=== PATIENT | female | born 1965 | race Caucasian/White ===

== ENCOUNTER 2020-02-18 13:14 | Emergency (ER) | payer SELFPAY ==
[~2020-02-18] VITALS: Ht 160 cm; Wt 68.0 kg
--- NOTE | 2020-02-18 15:21 | Diagnostic Imaging Report ---
TECHNIQUE: 1. Frontal view of the chest in expiration. 2. Frontal view of the chest in inspiration INDICATION: ^shortness of breath ^20200218 ^1436 COMPARISON: None DISCUSSION: Limited evaluation due to portable technique. Lines and hardware: None Heart and mediastinum: Cardiomediastinal silhouette is enlarged. Central vascular congestion is noted. Trachea projects midline. Lungs and pleura: Prominent interstitial markings are noted. Blunting of the right costophrenic angle is noted. Patchy right basilar opacities are noted. Negative for large left effusion or focal consolidation. Negative for large pneumothorax. Soft tissues and bones: No acute abnormality. IMPRESSION: 1. Right basilar patchy airspace opacities with blunting of the right costophrenic angle is concerning for pleural effusion/overlying atelectasis. Superimposed consolidation/infection at the right lung base is difficult to exclude. 2. Cardiomegaly, central vascular congestion and interstitial opacities are concerning for fluid overload/early pulmonary edema. Signed by: Maynor Acosta MD on 02/18/2020 3:18 PM
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
--- OUTSIDE RECORDS SUMMARY | 2020-02-20 16:14 | XMS REPORT | Clinical Summary ---
Author Author [facility] Organization [facility] Address Unknown Phone Unavailable Care Team Providers Care Attendant [facility] Name Role Phone PCP Unavailable Allergies No Known Allergies Medications End Date Status Medication Sig Dispensed Refills Start Date Active ibuprofen (MOTRIN) 800 mg Take 1 tablet 30 tablet 0 tabletIndications: by mouth 9 Nonintractable headache, every 8 hours unspecified chronicity as needed for pattern, unspecified Pain Take headache type with food. Active baclofen (LIORESAL) 10 mg Take 1 tablet 60 tablet 1 tabletIndications: by mouth 2 9 Chronic midline low back times daily pain without sciatica as needed for Pain (CLBP). Active mupirocin (BACTROBAN) 2 % Apply to 22 g 3 ointmentIndications: Skin affected area 9 lesion of face 3 times daily. Active naproxen (NAPROSYN) 500 Take 1 tablet 60 tablet 1 mg tabletIndications: by mouth 2 9 Chronic bilateral low times daily back pain without (with meals). sciatica Additional Information Patient not taking. Reported on 05/24/2019 9:56 AM Active polyethylene glycol Add lukewarm 4000 mL 0 04/29 (GOLYTELY) 236-22.74-6.74 drinking 9 -5.86 gram oral water to the solutionIndications: fill chip (4 History of colon polyps liters) and shake. Drink as directed by your doctor.. Active imiquimod (ALDARA) 5 % Apply the 12 Each 3 topical cream cream to the 9 packetIndications: affected area Superficial basal cell on the left carcinoma thigh and on the upper back five days a week for at least 6 weeks. Cont use after that 5 days a week unless there is significant pain. Active hydrOXYzine (ATARAX) 25 Take 1 tablet 30 tablet 2 mg tabletIndications: by mouth 9 Anxiety disorder, daily as unspecified type needed for Anxiety. Additional Information Patient not taking. Reported on 05/24/2019 9:56 AM Active atomoxetine (STRATTERA) Take 1 30 capsule 1 40 mg capsuleIndications: capsule by 0 Attention deficit mouth daily. Active acetaminophen-codeine Take 1 tablet 30 tablet 0 (TYLENOL/CODEINE #3) by mouth 0 300-30 mg per every 4 hours tabletIndications: Basal as needed for cell carcinoma (BCC) of Pain. skin of other part of face, Open wound of face, initial encounter 04/02/2019 Discontinued (Reorder) traMADol (ULTRAM) 50 mg Take 1 tablet 30 tablet 0 tabletIndications: Skin by mouth 9 lesion of face every 6 hours as needed for Pain. 04/29/2019 Discontinued (Reorder) polyethylene glycol Add lukewarm 4000 mL 0 03/26 (GOLYTELY) 236-22.74-6.74 drinking 9 -5.86 gram oral water to the solutionIndications: fill chip (4 History of colon polyps liters) and shake. Drink as directed by your doctor.. 04/09/2019 traMADol (ULTRAM) 50 mg Take 1 tablet 30 tablet 0 tabletIndications: Skin by mouth 9 lesion of face every 6 hours as needed for up to 7 days for Pain. 06/04/2019 Discontinued (Reorder) acetaminophen-codeine Take 1 tablet 30 tablet 0 (TYLENOL/CODEINE #3) by mouth 9 300-30 mg per every 6 hours tabletIndications: Skin as needed for lesion of face Pain. 04/12/2019 Discontinued NORCO 5-325 mg Take 1 tablet 60 tablet 0 tabletIndications: Skin by mouth 9 cancer every 6 hours as needed for Pain. 04/12/2019 Discontinued NORCO 5-325 mg Take 1 tablet 60 tablet 0 tabletIndications: Skin by mouth 9 cancer every 6 hours as needed for Pain. 08/03/2019 Discontinued (Alternate ther apy) HYDROcodone-acetaminophen Take 1 tablet 60 tablet 0 (NORCO) 5-325 mg by mouth 9 tabletIndications: Skin every 6 hours cancer as needed for Pain. 05/09/2019 hydrOXYzine (ATARAX) 25 Take 1 tablet 30 tablet 0 mg tabletIndications: by mouth 3 9 Anxiety state times daily as needed for up to 10 days for Itching. 05/07/2019 Discontinued (Alternate ther apy) imiquimod (ALDARA) 5 % Apply 1 12 Each 6 topical cream Packet to 9 packetIndications: affected area Superficial basal cell 3 times carcinoma weekly Use five days a week at bedtime to the affected areas on the right thigh and upper back. Start using after vicente.. 05/14/2019 Discontinued (Other) methylphenidate HCl Take 1 tablet 30 tablet 0 04/25 (CONCERTA) 27 mg TR24 by mouth 9 extended release every tabletIndications: morning. Attention deficit 06/24/2019 Discontinued (Alternate ther apy) buPROPion (WELLBUTRIN XL) Take 1 tablet 30 tablet 2 150 mg extended release by mouth 9 tabletIndications: every Attention deficit morning. 08/03/2019 Discontinued (Alternate ther apy) traMADol (ULTRAM) 50 mg Take 1 tablet 30 tablet 0 tabletIndications: Basal by mouth 0 cell carcinoma, Open every 6 hours wound of face, initial as needed for encounter Pain. 06/14/2019 docusate sodium (COLACE) Take 1 10 capsule 0 0 100 mg capsule by 0 capsuleIndications: Basal mouth 2 times cell carcinoma, Open daily for 10 wound of face, initial days. encounter 06/14/2019 amoxicillin-clavulanate Take 1 tablet 20 tablet 0 (AUGMENTIN) 875-125 mg by mouth 2 0 per tabletIndications: times daily Basal cell carcinoma, for 10 days. Open wound of face, initial encounter 06/28/2019 Discontinued (Reorder) acetaminophen-codeine Take 1 tablet 20 tablet 0 (TYLENOL/CODEINE #3) by mouth 0 300-30 mg per every 6 hours tabletIndications: Basal as needed for cell carcinoma, Open Pain. wound of face, initial encounter 08/03/2019 Discontinued (Alternate ther apy) acetaminophen-codeine Take 1 tablet 15 tablet 0 (TYLENOL/CODEINE #3) by mouth 0 300-30 mg per every 6 hours tabletIndications: Basal as needed for cell carcinoma, Open Pain. wound of face, initial encounter Active Problems Problem Noted Date Open wound of face 06/01[place]2019 [place] [facility] [place] Overview: Head and Neck Tumor Board Date 05/12/20 Date discussed: 05/12/2019 Referred by :Dr. Ayala Discussants: (Surgery) Drs. Bains & Bharat lewis, (OFMS) Dr. Cade (Radiation) Dr. Merrill (Radiology) , (Pa thology) Dr. Mckeon, (H&N METER SETTER) Mrs. Jeffers, (Nutrition) Meghan Mccarthy, (Sp ee Pathologist) Michelle Peña and Sonya Hardin (Case Management) Tony Lee (Med Onc & Moderator) Dr. Locke and Dr. Tamez Diagnosis: 5.5cm Nodular basal cell car cinoma of scalp Stage (TNM): Was [place] changed [place] [facility] [place]? No Prognostic marker discussed? Yes Clinical trial options? No Question: Treatment Planning Imaging: CT Head, CT face/neck 04/19/20 Recs:Surgery scheduled 06/01/2018 [facility] [place]. Final decisi on is left to patient and treating physician. Cannabis use with anxiety disorder 05/17/2019 Attention deficit 05/12/2019 Anxiety disorder 05/12/2019 Basal cell carcinoma 04/26/2019 Overview: Added automatically from request for jose euceda [id number] Cigarette smoker 03/26/2019 Chronic midline low back pain without sciatica 03/26 Degenerative disc disease at L5-S1 level 03/26/2019 Skin lesion of face Encounters Care Team Description Date Type Specialty Linda Ivory NP 09/22/2019 Orders Only Family Practice Maninder Rodriguez MD Medications 09/20/2019 Refill Ent-Otolaryngology Milton Mednoza MD Medications 09/07/2019 Refill Ent-Otolaryngology Milton Mendoza MD Medications 09/03/2019 Refill Ent-Otolaryngology Milton Mendoza MD Medications 08/26/2019 Refill Ent-Otolaryngology Milton Mendoza MD Basal cell carcinoma (BCC) of skin of ot her part of face (Primary Dx); Cigarette smoker; Attention deficit; Anxiety disorder, unspecified type; Open wound of face, initial encounter 08/03/2019 Office Visit Ent-Otolaryngology Amanda Durant [facility] [place] 08/03/2019 Clinical Case Case Management Mgt Maninder Rodriguez MD Basal cell carcinoma (Primary Dx); Open wound of face, initial encounter 06/28/2019 Office Visit Ent-Otolaryngology Jeremiah Lee, RN 06/28/2019 Clinical Case t Haley Tierney MD Attention deficit (Primary Dx) 06/24/2019 Office Visit Psychiatry Howie Talamantes MD Callejas, Sandra A, WAREHOUSE STOCK CLERK 06/01/2019 Anesthesia Event Maninder Rodriguez MD WIDE LOCAL EXCISION OF RIGHT FOREHEAD SC ALP MASS, INTEGRA PLACEMENT, WOUND VAC PLACEMENT. 06/01/2019 Surgery Maninder Rodriguez MD Open wound of face, initial encounter (P rimary Dx); Basal cell carcinoma 06/01/2019 Hospital - Encounter 06/04/2019 Lowell Hamlin ResidentPA Medications 05/31/2019 Orders Only Ent-Otolaryngology Chelsea Leon, WAREHOUSE STOCK CLERK 05/24/2019 Hospital Anesthesiology Encounter Fermín Salmeron MD Attention deficit (Primary Dx); Anxiety disorder, unspecified type 05/17/2019 Office Visit Psychiatry Fermín Salmeron MD 05/14/2019 Orders Only Psychiatry Jeremiah Lee RN 05/13/2019 Clinical Case Mgt Fermín Salmeron MD Anxiety disorder, unspecified type (Prim nae Dx); Attention deficit 05/12/2019 Office Visit Psychiatry Clement Mena MD Basal cell carcinoma of scalp (Primary D x); Superficial basal cell carcinoma; Basal cell carcinoma (BCC) of skin of other part of face; Basal cell carcinoma of skin of left lower limb, including hip; Basal cell carcinoma, trunk 05/07/2019 Office Visit Dermatology Candelaria Cardoso MD Patton, Lisa M, NP Breast cancer screening (Primary Dx); History of colon polyps; Needs flu shot; Anxiety state 04/29/2019 Office Visit Family Practice Maninder Rodriguez MD Basal cell carcinoma (BCC) of forehead ( Primary Dx) 04/26/2019 Office Visit Ent-Otolaryngology Maninder Rodriguez MD Skin cancer 04/26/2019 Hospital Radiology Encounter Maninder Rodriguez MD 04/26/2019 Orders Only Ent-Otolaryngology Lowell Hamlin ResidentMD 04/19/2019 Orders Only Ent-Otolaryngology Jamie Finn MD Skin cancer; Skin lesion of face 04/16/2019 Hospital Radiology Encounter Maninder Rodriguez MD Skin cancer (Primary Dx) 04/12/2019 Office Visit Ent-Otolaryngology Kalin Gutierrez MD Chronic bilateral low back pain without sciatica (Primary Dx) 04/09/2019 Office Visit Family Practice Skin lesion of face 04/07/2019 Hospital Lab Encounter Jamie Finn MD Skin lesion of face (Primary Dx) 04/07/2019 Office Visit Ent-Otolaryngology History of colon polyps 04/02/2019 Hospital Lab Encounter Idalmis Early MD Slater, Nathaniel A, Fellow() Neoplasm of uncertain behavior of skin ( Primary Dx); Skin lesion of face 04/02/2019 Office Visit Dermatology Linda Ivory NP 03/26/2019 Ancillary Radiology Procedure Linda Ivory NP Skin lesion (Primary Dx); Chronic midline low back pain without sciatica; Health care maintenance; Screening for colorectal cancer; History of colon polyps; Cigarette smoker 03/26/2019 Office Visit Family Practice Linda Ivory NP 03/26/2019 Orders Only Family Practice after 02/17/2019 Immunizations Name Administration Dates Next Due Influenza, Injectable, 04/29/2019 (Deferred: Patie nt Refused) Quadrivalent Influenza, Injectable, 06/04/2019 (), 06/03/2019 ( ) Quadrivalent, Preservative Free Family History Medical History Relation Name Comments Heart Father Cancer Mother Cancer Sister Cancer Sister Relation Name Status Comments Father Alive Myocardial infarct at age 57 Mother Alive Breast cancer in 40 s Sister breast cancer in 30s Sister Unknown cancer of childhood , patient states pancreatic Social History Date Tobacco Use Types Packs/Day Years Used Current Every Day Smoker Cigarettes 1 34 Smokeless Tobacco: Never Used Tobacco Cessation: Counseling Given: No Comments: 03-26-19 report she smoke 3/4 pkg/day, declined info today Drinks/Week oz/Week Comments Alcohol Use 2 Cans of beer 2.0 Not Currently Alcohol Habits Answer Date Recorded How often do you have a drink containing alcohol? 2-4 time s a month 04/09/2019 How many drinks containing alcohol do you have on 1 or 2 04/09/2019 a typical day when you are drinking? How often do you have six or more drinks on one Not asked occasion? Social Isolation Answer Date Recorded In a typical week, how many times do you talk on Three sathish es a week 04/29/2019 the phone with family, friends, or neig hbors? How often do you get together with friends or Three times a week 04/29/2019 relatives? How often do you attend yazdanism or rastafarian 1 to 4 times p year 04/29/2019 services? Do you belong to any clubs or organizations such Not asked as yazdanism groups, unions, fraternal or athletic groups, or school groups? How often do you attend meetings of the clubs or Never 04/29/2019 organizations you belong to? Are you now , , , , Divorce d 04/29/2019 never or living with a partner? Physical Activity Answer Date Recorded On average, how many days per week do you engage 0 days 04/29/2019 in moderate to strenuous exercise (like walking fast, running, jogging, dancing, swimmi ng, biking, or other activities that cause a light or heavy sweat)? On average, how many minutes do you engage in 0 min 04/29/2019 exercise at this level? Stress Answer Date Recorded Do you feel stress - tense, restless, nervous, or To some extent 04/29/2019 anxious, or unable to sleep at night be cause your mind is troubled all the time - these d ays? Financial Resource Strain Answer Date Recorde d How hard is it for you to pay for the very basics Not hard at all 04/29/2019 like food, housing, medical care, and h eating? Intimate Partner Violence Answer Date Recorde d Within the last year, have you been afraid of your No 04/29/2019 partner or ex-partner? Within the last year, have you been humiliated or No 04/29/2019 emotionally abused in other ways by you r partner or ex-partner? Within the last year, have you been kicked, hit, No 04/29/2019 slapped, or otherwise physically hurt b y your partner or ex-partner? Within the last year, have you been raped or No 04/29/2019 forced to have any kind of sexual activ ity by your partner or ex-partner? Food Insecurity Answer Date Recorded Within the past 12 months, you worried that your Never idalia e 04/02/2019 food would run out before you got money to buy more. Within the past 12 months, the food you bought Never true 04/02/2019 just didn't last and you didn't have mo leah to get more. Transportation Needs Answer Date Recorded In the past 12 months, has lack of transportation No 04/29/2019 kept you from medical appointments or f rom getting medications? In the past 12 months, has lack of transportation No 04/29/2019 kept you from meetings, work, or gettin g things needed for daily living? Sex Assigned at Date Recorded Not on file Industry Job Start Date Occupation Not on file Not on file Not on file Travel End Travel History Travel Start No recent travel history available. Last Filed Vital Signs Reading Time Taken Comments Vital Sign 116/77 08/03/2019 2:09 PM CDT Blood Pressure 97 08/03/2019 2:09 PM CDT Pulse 36.7 C (98.1 F) 08/03/2019 2:09 PM CDT Temperature 18 08/03/2019 2:09 PM CDT Respiratory Rate 95% 06/01/2019 4:30 PM FLORAL SPECIALIST Oxygen Saturation - - Inhaled Oxygen Concentration 60.8 kg (134 lb) 08/03/2019 2:09 PM CDT Weight 160 cm (5' 3") 08/03/2019 2:09 PM CDT Height 23.74 08/03/2019 2:09 PM CDT Body Mass Index Plan of Treatment Health Maintenance Due Date Last Done Comments Cervical Cancer Scrn (3 1985 Yrs) Breast Cancer Scrn 2004 (Yearly) IMM Influenza Seasonal 02/24/2020Feb to July (>/= 19 yrs) Colorectal Cancer Scrn 04/03/2020 04/03/2019 Annual (FIT/FOBT) Age 50 to 75 Implants Device Identifier Shelf Expiration Date Model / Serial / L ot Implanted Type Area Manufactur er 01/23/2021 [id number] / / [id number] Integra Bilayer Matrix Wound Right: Forehead Integra Dressing [id number] Implanted: Qty: 1 on 06/01/2019 by Maninder Johns MD at [facility] Procedures Comments Procedure Name Priority Date/Time Associated Diag nosis SEQUENTIAL COMPRESSION Routine 06/02/2019 PUMP 3:18 AM FLORAL SPECIALIST WOUND VAC SYSTEM Routine 06/01/2019 9:34 AM FLORAL SPECIALIST TISSUE EXAM Routine 06/01/2019 Basal cell carc inoma 9:17 AM FLORAL SPECIALIST EXCISION CYST 06/01/2019 Basal cell carcinom a 8:10 AM FLORAL SPECIALIST BMP POC Routine 05/24/2019 10:04 AM FLORAL SPECIALIST ECHG EKG PROC 12 LEAD STAT 05/24/2019 EKG; TRACING ONLY 9:55 AM FLORAL SPECIALIST URINE DRUG SCREEN STAT 05/12/2019 Anxiety diso rder, 9:43 AM FLORAL SPECIALIST unspecified type Attention deficit CT HEAD W CONTRAST Routine 04/26/2019 Skin cancer 8:[address] MAXILLOFACIAL W Routine 04/16/2019 Skin lesion of face CONTRAST 9:[address] SOFT TISSUE NECK W Routine 04/16/2019 Skin can cer CONTRAST 9:01 AM FLORAL SPECIALIST UREA NITROGEN/CREATININE Routine 04/07/2019 Skin lesion of face 2:44 PM FLORAL SPECIALIST FECAL OCCULT BLOOD Routine 04/03/2019 History of colon polyps 11:00 AM FLORAL SPECIALIST TISSUE EXAM Routine 04/02/2019 Neoplasm of unc ertain 11:50 AM FLORAL SPECIALIST behavior of skin XRAY SPINE LUMBOSACRAL Routine 03/26/2019 Chronic midline low back AP-LAT 11:04 AM CDT pain without sciati ca BMP POC Routine 03/26/2019 10:43 AM CDT THYROID STIMULATING Routine 03/26/2019 Health car e maintenance HORMONE (TSH) 10:28 AM CDT L[facility] HIV AG/AB COMBO ROUTINE Routine 03/26/2019 Health care maintenance SCREENING 10:28 AM CDT HEPATITIS PANEL Routine 03/26/2019 [facility] care ma intenance 10:28 AM CDT HEMOGLOBIN A1C Rout[facility]2019 [facility] AM CDT ALANINE Routine 03/26/2019 [facility] AMIN[facility]/ASPARTATE 10:28 AM CDT AMINOTRANSFERASE (ALT/AST) CBC STAT 03/26/2019 Skin lesion 10:27 AM CDT CBC/DIFF STAT 03/26/2019 Skin lesion 10:27 AM CDT after 02/17/2019 Results * Pathology - Tissue Exam (06/01/2019 9:17 AM FLORAL SPECIALIST) Only the most recent of 2 results within the time period is included. Case Report Surgical Pathology [facility] Case: [id number] Authorizing Provider: Maninder Rodriguez MD Collected: 06/01/2019 09:17 AM Ordering Location: [facility] OR Received: 06/01/2019 09:45 AM Pathologist: Isabella Love MD Specimen: Scalp, Wide Local excision Right Scalp Forehead, Long Stitch 6 oclock inferior, Short Stitch 9 oclock Temporal Addendum Stains for D2-40 was performed [facility] Addendum on block A6 and there is no electronically definite support for lymphatic signed by invasion. Isabella Love MD on 06/11/2019 at 9:45 AM FINAL DIAGNOSIS RIGHT SCALP FOREHEAD LESION, [facility] Electronically LONG STITCH 6 O'CLOCK, signed by Love, INTERIOR, SHORT STITCH 9 Isabella Treviño MD on O'CLOCK, EXCISION: 06/08/2019 at 12:27 - NODULAR BASAL CELL PM CARCINOMA WITH ULCERATION - FOCAL DEEP MARGIN POSITIVE FOR CARCINOMA - SEE COMMENT "I have personally reviewed the resident's preliminary interpretation and all specimen preparations and have personally issued this report." Comment Focal deep margin (block A7) [facility] is positive for carcinoma. All other margins are negative. Stains for D2-40 and CD31 are pending and results will be issued in an addendum. Case was shown at [facility] QA conference and diagnosis of nodular basal cell carcinoma was agreed upon. Gross The specimen is received fresh [facility] Description and subsequently put in formalin, labeled with patient's name, medical record number and "WIDE LOCAL EXCISION, RIGHT SCALP FOREHEAD, LONG STITCH 6 O'CLOCK, INFERIOR, SHORT STITCH 9 O'CLOCK". It consists of a mann-white oval skin excision fragment measuring 7.2 x 5.6 x 0.7 cm. The skin excision fragment is oriented by a long stitch marking 6 o'clock inferior and short stitch marking 9 o'clock temporal. The specimen is inked as follows: Blue=12 o'clock to 3 o'clock Red=3 o'clock to 6 o'clock Green=6 o'clock to 9 o'clock Bonner=9 o'clock to 12 o'clock Black=deep margin There is an ulcerated lesion with focal exophytic nodular appearance, measuring 6.2 x 5.0 cm, 0.3 cm from the closest resection margin from 9-2 o'clock and 0.4 cm from the closest resection margin from 5-6 o'clock. The skin fragment is serially sectioned from 9 o'clock to 3 o'clock into 23 slices. The mass is abutting to the posterior margin, with the greatest deep invasion of 0.7 cm, with no hemorrhage or necrosis identified grossly. The specimen is representatively submitted as follows: A1: entire slice 1, tip, en face A2: entire slice 2, skin between the tip and lesion A3: entire slice 3, closest resection margin from 9-10 o'clock A4: entire slice 4, closest resection margin from 9-10 o'clock A5: entire slice 5 A6: entire slice 7, closest posterior margin A7: entire slice 9, closest to posterior margin A8: entire slice 11 A9: entire slice 13 A10: entire slice 19, with exophytic nodule A11: slice 20, closest resection margin from 5-6 o'clock A12: entire slice 22, skin between the lesion and slice 23 A13: entire slice 23, tip 3 o'clock, en face Fco Stein / [id number] Resident Pathologist Microscopic A microscopic examination has [facility] Description been performed and the findings are incorporated in the diagnosis above. The positive and negative controls for all histochemical and immunohistochemical stains, if performed for this case, have been reviewed and, unless otherwise noted, have been found to be appropriate. IHC Disclaimer This immunohistochemistry [facility] test(s) was developed and its performance characteristics determined by the [facility] and/or affiliated institution. It has not been cleared or approved by the U.S. Food and Drug Administration. The FDA has determined that such clearance or approval is not necessary. This test is used for clinical purposes. It should not be regarded as investigational or for research. This laboratory is certified under the Clinical Laboratory Improvement Amendments of 1988 (CLIA) as qualified to perform high complexity clinical laboratory testing. Specimen Tissue - Scalp Performing Organization Address City/State/[facility] one Number [facility] [address] [place] [address] * POCT BMP POC docked device (05/24/2019 10:04 AM FLORAL SPECIALIST) Only the most recent of 2 results within the time period is included. Sodium POC 139 136 - 145 mmol/L [facility] Potassium POC 4.5 3.5 - 5.1 mmol/L [facility] Chloride POC 102 98 - 107 mmol/L [facility] TCO2 POC 26 21 - 32 mmol/L [facility] Urea Nitrogen 11 7 - 18 mg/dL [facility] POC Creatinine POC 0.7 0.6 - 1.3 mg/dL [facility] Glucose POC 102 74 - 106 mg/dL [facility] Ionized Calcium 1.17 1.15 - 1.29 mmol/L [facility] POC GFR, Estimated >90 >=90 mL/min/1.73 m2 [facility] Hemoglobin POC 14.6 12 - 16 g/dL [facility] Hematocrit POC 43.0 37.0 - 47.0 % [facility] Specimen Blood, venous Performing Organization Address City/[facility] one Number [facility] [address] [place] [address] [phone] * 12 LEAD EKG (05/24/2019 9:55 AM FLORAL SPECIALIST) 12 LEAD EKG FOR [facility] Aiden Montenegro [facility] Test Date: 2019-05-24 Pat Name: FERDINAND GUTHRIE Department: [id number] Room: Gender: Fagot Maker: SANTO : 1965 Requested By: CHELSEA Crockett Order Number: [id number] Reading MD: Kalin Gutierrez Measurements Intervals [place] Rate: 82 P: 19 LA: 155 QRS: 79 QRSD: 104 T: 65 QT: 381 QTc: 447 Interpretive Statements SINUS RHYTHM INCOMPLETE RIGHT BUNDLE BRANCH BLOCK POOR R WAVE PROGRESSION ABNORMAL ECG Electronically Signed On 05-26-2019 10:58:53 FLORAL SPECIALIST by Kalin Gutierrez Specimen Performing Organization Address [facility] one Number [facility] * DRUG SCREEN, URINE (05/12/2019 9:43 AM FLORAL SPECIALIST) Opiate, Ur Positive (A) Negative JOAQUIM LESLY Comment: LABORATORY Calibrated Standard: Morphine Positive if urine level > or = 300 ng/dL Amphetamine Negative Negative [facility] Comment: LABORATORY Calibrated Standard: D-Methamphetamine Positive if urine level > or = 1000 ng/mL Barbiturate Negative Negative [facility] Comment: LABORATORY Calibrated Standard: Secobarbital Positive if urine level is > or = 200 ng/mL Benzodiazepine Negative Negative [facility] Comment: LABORATORY Calibrated Standard: Lormethazepam Positive if urine level is > or = 200 ng/mL Cocaine Negative Negative [facility] Comment: LABORATORY Calibrated Standard: Benzoylecgonine Positive if urine level > or = 300 ng/dL PCP Negative Negative [facility] Comment: LABORATORY Calibrated Standard: Phencyclidine Positive if urine level > or = 25 ng/dL Cannabinoid Positive (A) Negative [facility] Comment: LABORATORY Calibrated Standard: 11 nor-delta(9)-THC carboxylic acid Positive if urine level > or = 50 ng/mL Specimen Urine - Voided, urine Performing Organization Address [facility] one Number [facility] [address] [place] [address] * CT HEAD W CONTRAST (04/26/2019 8:21 AM FLORAL SPECIALIST) Specimen Impressions Performed At IMPRESSION: SMS Ulcerated exophytic malignancy of the r ight frontal scalp, which is infiltrative of the underlying scalp so ft tissues extending near the cortical margin with no discrete cortic al erosion. This [facility] radiology report is a prelimi nary resident dictation until finalized by an attending. Changes to this preliminary report may occur in an additional preliminary or finaliz ed version. Dictated By: Ramesh Acevedo MD, 04/26/2019 9:19 AM I have reviewed the study and agree wit h the findings in this report. Signed By: Royal Zhang MD, 04/26/20 9:47 AM Narrative Performed At EXAM: CT BRAIN WITH CONTRAST [facility] DATE: 04/26/2019 8:22 AM INDICATION: Head/neck cancer, staging. Skin cancer COMPARISON: CT maxillofacial from 04/16 TECHNIQUE: Axial CT images of the brain are acquired with contrast. Sagittal and coronal reformats. IV contrast: 97 mL Omnipaque 300 DLP: 1194 mGy-cm FINDINGS: Exophytic and ulcerative right frontal scalp soft tissue mass measuring up to 1.3 cm in thickness, and 5.4 cm C C x 4.7 cm in length, infiltrative of the deep scalp soft tis sues extending near the cortical margin but no discrete erosion of the o uter cortex. No concerning additional enhancing lesi ons in the scalp or concerning focal osseous lesion. No abnormal intra cranial enhancement. No hydrocephalus or mass effect. Orbits ar e unremarkable. Imaged paranasal sinuses and mastoid air cells are clear . Again demonstrated is a 6 mm right lymp h node. Procedure Note Interface, Rad/Mammog In - 04/26/2019 9:52 AM FLORAL SPECIALIST EXAM: CT BRAIN WITH CONTRAST DATE: 04/26/2019 8:22 AM INDICATION: Head/neck cancer, staging. Skin cancer COMPARISON: CT maxillofacial from 04/16/2019 TECHNIQUE: Axial CT images of the brain are acquired with contrast. Sagittal and coronal reformats. IV contrast: 97 mL Omnipaque 300 DLP: 1194 mGy-cm FINDINGS: Exophytic and ulcerative right frontal scalp soft tissue mass measuring up to 1.3 cm in thickness, and 5.4 cm CC x 4.7 cm in length, infiltrative of the deep scalp soft tissues extending near the cortical margin but no discrete erosion of the outer cortex. No concerning additional enhancing lesions in the scalp or concerning focal osseous lesion. No abnormal intracranial enhancement. No hydrocephalus or mass effect. Orbits are unremarkable. Imaged paranasal sinuses and mastoid air cells are clear. Again demonstrated is a 6 mm right lymph node. IMPRESSION IMPRESSION: Ulcerated exophytic malignancy of the right frontal scalp, which is infiltrative of the underlying scalp soft tissues extending near the cortical margin with no discrete cortical erosion. This [facility] radiology report is a preliminary resident dictation until finalized by an attending. Changes to this preliminary report may occur in an additional preliminary or finalized version. Dictated By: Ramesh Acevedo MD, 04/26/2019 9:19 AM I have reviewed the study and agree with the findings in this report. Signed By: Royal Zhang MD, 04/26/2019 9:47 AM Performing Organization Address City/State/Zipcode Ph one Number SMS * CT SOFT TISSUE NECK W CONTRAST (04/16/2019 9:01 AM FLORAL SPECIALIST) Specimen Impressions Performed At IMPRESSION: SMS 1. Partially visualized right frontal scalp soft tissue lesion corresponds with biopsied lesion positi ve for basal cell carcinoma. No bony erosion at the immediately subjace nt calvarium 2. Mildly prominent right level 2A an d parotid lymph nodes measuring up to 7 mm short axis, are concerning for abran disease. This [facility] radiology report is a prelimi nary resident dictation until finalized by an attending. Changes to this preliminary report may occur in an additional preliminary or finaliz ed version. Dictated By: Ramesh Acevedo MD, 9 11:19 AM I have reviewed the study and agree wit h the findings in this report. Signed By: Reza Jules MD, 04/16/20 19 11:59 AM Narrative Performed At EXAM: CT NECK WITH CONTRAST [facility] EXAM: CT FACE WITH CONTRAST DATE: 04/16/2019 9:04 AM INDICATION: Neck mass, hx of malignancy . Skin cancer (accession [id number]), Skin lesion of face (acces xiao [id number]) COMPARISON: None. TECHNIQUE: Volumetric CT of the neck an d face is obtained after intravenous contrast. Axial, coronal an d sagittal images are provided. IV contrast: 97 mL Omnipaque 300. DLP: 675 mGy-cm FINDINGS: Odontogenic: Numerous missing teeth and dental caries. Facial spaces: No edema, organized carlos ection or abscess. The nasopharynx, oropharynx and oral ca vity are normal. The larynx, hypopharynx and thyroid gland are marka ble. Enhancing nodes within the right paroti d gland measuring up to 7 mm (series 201 image 70, 84). The salivary glands including the parotid and submandibular glands are otherwise norm al. The paranasal sinuses and mastoid air c ells are clear. Imaged portions of the brain and orbits are unremarkabl e. Mildly prominent right level 2A lymph n odes measuring up to 7 mm short axis (series 201 image 60, 61, 70). The visualized osseous structures shown no aggressive changes. Partially visualized is an enhancing, e xophytic, ulcerating and fungating irregularly shaped soft tissu e mass along the right frontal scalp, measuring up to 4.8 cm. There is no bony erosion at the immediately subjacent calvarium. The lung apices are clear. Procedure Note Interface, Rad/Mammog In - 04/16/2019 2:16 PM FLORAL SPECIALIST EXAM: CT NECK WITH CONTRAST EXAM: CT FACE WITH CONTRAST DATE: 04/16/2019 9:04 AM INDICATION: Neck mass, hx of malignancy. Skin cancer (accession [id number]), Skin lesion of face (accessi on [id number]) COMPARISON: None. TECHNIQUE: Volumetric CT of the neck and face is obtained after intravenous contrast. Axial, coronal and sagittal images are provided. IV contrast: 97 mL Omnipaque 300. DLP: 675 mGy-cm FINDINGS: Odontogenic: Numerous missing teeth and dental caries. Facial spaces: No edema, organized collection or abscess. The nasopharynx, oropharynx and oral cavity are normal. The larynx, hypopharynx and thyroid gland are markable. Enhancing nodes within the right parotid gland measuring up to 7 mm (series 201 image 70, 84). The salivary glands including the parotid and submandibular glands are otherwise normal. The paranasal sinuses and mastoid air cells are clear. Imaged portions of the brain and orbits are unremarkable. Mildly prominent right level 2A lymph nodes measuring up to 7 mm short axis (series 201 image 60, 61, 70). The visualized osseous structures shown no aggressive changes. Partially visualized is an enhancing, exophytic, ulcerating and fungating irregularly shaped soft tissue mass along the right frontal scalp, measuring up to 4.8 cm. There is no bony erosion at the immediately subjacent calvarium. The lung apices are clear. IMPRESSION IMPRESSION: 1. Partially visualized right frontal s calp soft tissue lesion corresponds with biopsied lesion positive for basal cell carcinoma. No bony erosion at the immediately subjacent calvarium 2. Mildly prominent right level 2A and parotid lymph nodes measuring up to 7 mm short axis, are concerning for abran disease. This [facility] radiology report is a preliminary resident dictation until finalized by an attending. Changes to this preliminary report may occur in an additional preliminary or finalized version. Dictated By: Ramesh Acevedo MD, 04/16/2019 11:19 AM I have reviewed the study and agree with the findings in this report. Signed By: Reza Jules MD, 04/16/2019 11:59 AM Performing Organization Address City/State/Zipcode Ph one Number SMS * CT MAXILLOFACIAL W CONTRAST (04/16/2019 9:01 AM FLORAL SPECIALIST) Specimen Impressions Performed At IMPRESSION: SMS 1. Partially visualized right frontal scalp soft tissue lesion corresponds with biopsied lesion positi ve for basal cell carcinoma. No bony erosion at the immediately subjace nt calvarium 2. Mildly prominent right level 2A an d parotid lymph nodes measuring up to 7 mm short axis, are concerning for abran disease. This [facility] radiology report is a prelimi nary resident dictation until finalized by an attending. Changes to this preliminary report may occur in an additional preliminary or finaliz ed version. Dictated By: Ramesh Acevedo MD, 11:19 AM I have reviewed the study and agree wit h the findings in this report. Signed By: Reza Jules MD, 04/16/20 11:59 AM Narrative Performed At EXAM: CT NECK WITH CONTRAST [facility] EXAM: CT FACE WITH CONTRAST DATE: 04/16/2019 9:04 AM INDICATION: Neck mass, hx of malignancy . Skin cancer (accession [id number]), Skin lesion of face (acces xiao [id number]) COMPARISON: None. TECHNIQUE: Volumetric CT of the neck an d face is obtained after intravenous contrast. Axial, coronal an d sagittal images are provided. IV contrast: 97 mL Omnipaque 300. DLP: 675 mGy-cm FINDINGS: Odontogenic: Numerous missing teeth and dental caries. Facial spaces: No edema, organized carlos ection or abscess. The nasopharynx, oropharynx and oral ca vity are normal. The larynx, hypopharynx and thyroid gland are marka ble. Enhancing nodes within the right paroti d gland measuring up to 7 mm (series 201 image 70, 84). The salivary glands including the parotid and submandibular glands are otherwise norm al. The paranasal sinuses and mastoid air c ells are clear. Imaged portions of the brain and orbits are unremarkabl e. Mildly prominent right level 2A lymph n odes measuring up to 7 mm short axis (series 201 image 60, 61, 70). The visualized osseous structures shown no aggressive changes. Partially visualized is an enhancing, e xophytic, ulcerating and fungating irregularly shaped soft tissu e mass along the right frontal scalp, measuring up to 4.8 cm. There is no bony erosion at the immediately subjacent calvarium. The lung apices are clear. Procedure Note Interface, Rad/Mammog In - 04/16/2019 2:16 PM FLORAL SPECIALIST EXAM: CT NECK WITH CONTRAST EXAM: CT FACE WITH CONTRAST DATE: 04/16/2019 9:04 AM INDICATION: Neck mass, hx of malignancy. Skin cancer (accession [id number]), Skin lesion of face (accessi on [id number]) COMPARISON: None. TECHNIQUE: Volumetric CT of the neck and face is obtained after intravenous contrast. Axial, coronal and sagittal images are provided. IV contrast: 97 mL Omnipaque 300. DLP: 675 mGy-cm FINDINGS: Odontogenic: Numerous missing teeth and dental caries. Facial spaces: No edema, organized collection or abscess. The nasopharynx, oropharynx and oral cavity are normal. The larynx, hypopharynx and thyroid gland are markable. Enhancing nodes within the right parotid gland measuring up to 7 mm (series 201 image 70, 84). The salivary glands including the parotid and submandibular glands are otherwise normal. The paranasal sinuses and mastoid air cells are clear. Imaged portions of the brain and orbits are unremarkable. Mildly prominent right level 2A lymph nodes measuring up to 7 mm short axis (series 201 image 60, 61, 70). The visualized osseous structures shown no aggressive changes. Partially visualized is an enhancing, exophytic, ulcerating and fungating irregularly shaped soft tissue mass along the right frontal scalp, measuring up to 4.8 cm. There is no bony erosion at the immediately subjacent calvarium. The lung apices are clear. IMPRESSION IMPRESSION: 1. Partially visualized right frontal s calp soft tissue lesion corresponds with biopsied lesion positive for basal cell carcinoma. No bony erosion at the immediately subjacent calvarium 2. Mildly prominent right level 2A and parotid lymph nodes measuring up to 7 mm short axis, are concerning for abran disease. This [facility] radiology report is a preliminary resident dictation until finalized by an attending. Changes to this preliminary report may occur in an additional preliminary or finalized version. Dictated By: Ramesh Acevedo MD, 04/16/2019 11:19 AM I have reviewed the study and agree with the findings in this report. Signed By: Reza Jules MD, 04/16/2019 11:59 AM Performing Organization Address [facility] one Number SMS * BUN/CREATININE (04/07/2019 2:44 PM FLORAL SPECIALIST) Urea Nitrogen 21.0 7.0 - 25.0 mg/dL [facility] Creatinine 0.7 0.6 - 1.2 mg/dL [facility] GFR, Estimated 87 (L) >=90 mL/min/1.73 m2 [facility] Specimen Blood Performing Organization Address [facility] one [facility] LABORATORY [address] [place] [id number] * Fecal Occult Blood (04/03/2019 11:00 AM FLORAL SPECIALIST) Occult Blood Negative Negative [facility] Specimen Stool - Feces Performing Organization Address [facility] one [facility] LABORATORY [address] [place] [id number] * XRAY SPINE LUMBOSACRAL AP-LAT (03/26/2019 11:04 AM CDT) Specimen Impressions Performed At IMPRESSION: SMS 1. Multilevel degenerative disc disea se, severe at L5-S1. 2. Moderate lumbar facet arthropathy. 3. Grade 1 anterolisthesis of L2 on L 3 secondary to facet arthropathy. This [facility] radiology report is a prelimi nary resident dictation until finalized by an attending. Changes to this preliminary report may occur in an additional preliminary or finaliz ed version. I have reviewed the study and agree wit h the findings in this report. Signed By: Marco A Noble MD, 03/26/2019 1 1:36 AM Narrative Performed At EXAM: XR LUMBAR SPINE 3 VIEWS [facility] DATE: 03/26/2019 11:04 AM INDICATION: chronic low back pain since 2006. Chronic midline low back pain without sciatica COMPARISON: None TECHNIQUE: AP, coned lateral and late ral radiographs of the lumbar spine FINDINGS: 5 lumbar type, non-rib bearin g vertebral bodies are present. Vertebral body heights are overall pres erved. Grade 1 anterolisthesis of L2 on L3 is seen, secondary to facet ar thropathy. Disc space narrowing is mild at L2-L3, moderate at L3-L4 and L4-L5, and severe at L5-S1 with small anterior osteophyte formation. Mo derate facet joint arthropathy is present throughout the lumbar spine. Soft tissues are unremarkable. Procedure Note Interface, Rad/Mammog In - 03/26/2019 11:41 AM CDT EXAM: XR LUMBAR SPINE 3 VIEWS DATE: 03/26/2019 11:04 AM INDICATION: chronic low back pain since 2006. Chronic midline low back pain without sciatica COMPARISON: None TECHNIQUE: AP, coned lateral and lateral radiographs of the lumbar spine FINDINGS: 5 lumbar type, non-rib bearing vertebral bodies are present. Vertebral body heights are overall preserved. Grade 1 anterolisthesis of L2 on L3 is seen, secondary to facet arthropathy. Disc space narrowing is mild at L2-L3, moderate at L3-L4 and L4-L5, and severe at L5-S1 with small anterior osteophyte formation. Moderate facet joint arthropathy is present throughout the lumbar spine. Soft tissues are unremarkable. IMPRESSION IMPRESSION: 1. Multilevel degenerative disc disease , severe at L5-S1. 2. Moderate lumbar facet arthropathy. 3. Grade 1 anterolisthesis of L2 on L3 secondary to facet arthropathy. This [facility] radiology report is a preliminary resident dictation until finalized by an attending. Changes to this preliminary report may occur in an additional preliminary or finalized version. I have reviewed the study and agree with the findings in this report. Signed By: Marco A Noble MD, 03/26/2019 11:36 AM Performing Organization Address [facility] Ph one Number SMS * HIV-1/HIV-2 Routine Screening (03/26/2019 10:28 AM CDT) HIV Ag/Ab Combo Negative Negative [facility] Specimen Blood Performing Organization Address [facility] Ph one Number [facility] [address] [place] [address] [phone] * Hemoglobin A1C (03/26/2019 10:28 AM CDT) [facility] Hemoglobin A1c 5.6 4.3 - 6.1 % [facility] Estimated 114 (H) 70 - 110 mg/dL [facility] Average Glucose LABORATORY Specimen Blood Performing Organization Address [facility] one Number [facility] [address] [place] [address] * TSH [Thyroid Stimulating Hormone] (03/26/2019 10:28 AM CDT) [facility] TSH 1.99 0.45 - 5.33 uIU/mL [facility] Comment: LABORATORY If , please see the following reference ranges (not verified by lab): 1st Trimester: 0.05 -3.70 uIU/mL 2nd Trimester: 0.31 -4.35 uIU/mL 3rd Trimester: 0.41 - 5.18 uIU/mL Specimen Blood Performing Organization Address [facility] one Number [facility] [address] [place] [address] [phone] * Lipid Profile (03/26/2019 10:28 AM CDT) [facility] Cholesterol 198.0 <=200.0 mg/dL [facility] Triglyceride 119 <150 mg/dL [facility] HDL 54.0 See Reference Range [facility] Narrative. mg/dL LABORATORY LDL 120 (H) <100 mg/dL [facility] Comment: LABORATORY Optimal: < 100.0 mg/dL Near Optimal: 120-129 mg/dL Borderline: 130-159 mg/dL High: 160-189 mg/dL Very High: >=190 mg/dL Patient Yes [facility] Fasting? LABORATORY Specimen Blood Performing Organization Address [facility] one Number [facility] [address] [place] [address] * Hepatitis Panel (03/26/2019 10:28 AM CDT) [facility] Hepatitis C Negative Negative [facility] Virus (HCV) LABORATORY Antibody Hep B Surface Negative Negative [facility] Ag LABORATORY Hep A Vir Ab Negative Negative [facility] IgM [facility] Hep B Core Ab Negative Negative [facility] IgM [facility] Specimen Blood Performing Organization Address [facility] one Number [facility] [address] [place] [address] * ALT/AST (03/26/2019 10:28 AM CDT) ALT 14 7 - 52 U/L [facility] AST 17 13 - 39 U/L [facility] Specimen Blood Performing Organization Address City/State/Zipcode Ph one Number [facility] [address] [place] [address] * CBC/Diff (03/26/2019 10:27 AM CDT) Pathologist [facility] WBC 7.6 4.5 - 11.0 K/uL [facility] RBC 4.66 4.20 - 5.40 M/uL [facility] Hemoglobin 14.6 12.0 - 16.0 g/dL [facility] Hematocrit 43.6 37.0 - 47.0 % [facility] MCV 93.6 (H) 82.0 - 92.0 fL [facility] MCH 31.3 27.0 - 32.0 pg [facility] MCHC 33.5 32.0 - 36.0 g/dL [facility] RDW 44.2 36.4 - 46.3 fL [facility] Platelet 277 150 - 400 K/uL [facility] Mean Platelet 9.0 (L) 9.4 - 12.4 fL [facility] Volume Neutrophil 48.4 34.0 - 70.0 % [facility] Lymphs 41.9 20.0 - 50.0 % [facility] Monocytes 8.6 5.0 - 12.0 % [facility] Eos 0.4 (L) 0.7 - 5.0 % [facility] Basos 0.7 0.1 - 1.2 % [facility] Neutrophils 3.66 1.56 - 6.13 K/uL [facility] (Absolute) Lymphs 3.16 1.18 - 3.74 K/uL [facility] (Absolute) Monocytes(Absol 0.65 (H) 0.24 - 0.36 K/uL [facility] [place]) Eos (Absolute) 0.03 (L) 0.04 - 0.36 K/uL [facility] Baso (Absolute) 0.05 0.01 - 0.08 K/uL [facility] Specimen Blood Performing Organization Address City/State/Zipcode Ph one Number [facility] [address] [place] [address] [address] [facility] after 02/17/2019 Insurance Type Payer Benefit Subscriber ID Effective Phone Address Plan / Dates Group PENDING RCA SSI xxxxxxxxx 2019- [phone] [place] [address] PENDING RCA SSI xxxxxxxxx 2019-P [phone] resent [address] [place] [address] Advance Directives Date Inactivated Comments Code Status Date Activated 06/04/2019 12:51 PM Full Code 06/01/2019 10:18 AM
--- OUTSIDE RECORDS SUMMARY | 2020-02-20 16:14 | XMS REPORT | Continuity of Care Document ---
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 KwknF3tnPHPjGIJiT3UnFX6fISVlQlj4EXJ3GOU0PQ YeYRCcU6LsJX3dMEDlcGRqZBx7y3tynCvcPHMhXKJ8i1doJPktszSsBB6sxi4owXy4p5xmybUoVFCeQF UirTEPUMVmO9HfmXjqIf0yzVb8gMxlBxotMKA8Yvt7PU7zjc91zjd9bDekYIXuplfvHgM4CWcuYIZogk kiHGh7TRuxVOMluUM2YYJbeIUcW6FdDWPgSZ1fitt4 JPR8MEabFLEhMvC8JQAgxKPlDSQltZddGKfvw282VQD8VdRvHM5qE2Xbq4U0nR5cmFEjDUAhjAZyXlPs JIGdyu9ajDXqKGcfi0TtSYX5wxF6sGQybNLzGFMvFU59Ewyas4EoOikpPDT2FXZahcEmb7Yws3llVzRv vkFdJ6ylM0QuSEHqBDXaZUQcBaPohcJts0Ony6EbpM HsvXm6z8krEFUwEFRqgJhjr9irHTB9RFTqB0T0qRIpt1llDIpgGSHeeSB3dsK6DRTbiRHzI5QqiX2gUB IeXV5qsec6j1hiPNE2MHwoQUCgPgB4qcL0IPUdkRGxXQNbqZrmVHyrp445XNP7SrLiLVCny8TkR3TczC ytS82cuFksE26yTQHngYyfeU9ulHdsrS9hTeSdStXx YExknGmkfVSercqdPCxsynHeOBbmmotzFLDeIYwpC5gnReBiWNJzmYqmVHmlk1ScGSUePKHbSvErF2Rv rB0yHFXjyvORPu48PSH7EBShsSHhBu0xtKCzQI6rDLWmf4SbSSO9HMYcALG0nXFxYFGblaXlraClBUYo agu4IEOfpTDte5D5FYAbccOvuD2iuDL3jYJugZ14GCIax45cDFnfJCL4 FINAL DIAGNOSIS (test code = 98284852) n7axjRZlJYBquXAwNxBdQUGfMJQqm8fdAAXzjBMdKoOuRsNxLqFhMdefuHIiBAEpZkRzd9jqd364fJJi l1goRXZzAsO9uMAuRXIwpRNhS069BXEiEAaag2yrh0HmMVKqsQLik5B7LHAPkbgatRl1sNlhK40az3U9 LwetN9wjJQBvQJHuZ3LtOZ8sGYHiFxc1RTA8JVS3YK YtXCHxK9HkFU4xYTZwtRUfTPz7z6ttbZgqJLTiYLG1d7vkTVrwrgKhJS4ojo7evSu7h9ibujIfEIRzNU SedFMFZSYqB0MhdPyhHw7elRb3iKogOtegCPP1Epb4ZS9uke46uru2vSqmPELdyjtgBoE8EDeoKRJqyh owEVh5PAuqIMUgxJPwOtppOUKqcqWlDzqeEDLchOTw CxrjSCGdOkAlJlfmXDQvUJA4UnTrYVOqd2BiwlotDX5bR7Olt6Q6yI4jbEZvRXLazTCySsEiZBLllb0d uOLsMUkjt7XfCDQ0biI4zANkkBFsGAVzWF61Egufg7KvYuggEYM0LDGuzjXyz3Rgl7zdPeSumzToE1iz A2UdSRDpTKDgMCXoJfKqugJpn5Vuy5CjwNJjpPt8l6 jgVVXjVMBazBahl0kvDUY8PPInU6C8fNIbi2jpBYinGDOgbIG2jtUkOghzSMOjroU9wqXnIbipCVNgsD S0qsCrBupeCPVpCtY1esIxYxfrSMMxVUT8YxZlLSXkw0UbjytbXDPfb1ZoR6VrhRwcO13jdUlyB87sGA ApfDfrcY7xzGrtmO1yVoJjYoXyJXupjDdzzNJjvbxw UCjhqjKoOIbpxkfhMZCaCBeuG2jrYqXrFCEpuVgpYYtdh7NqZOOkJMFySeYpBvnJVEThA5NOIGRwQs3R SWaTOJEfMWTFHU1HGVHOI57TWOINDPDBQNZ0RQ9eD0aDA6eaWWrVBHQEIC9RSIYBHA0JFSRAWTsHZ7xh RGOZB6JOU3BQKYHGSHUDM8yJKjcfvMQqDFZqWqEyBN 7QOCBUEGVkRmOHBWvmE8WMDWSMQWZYCQ8APSHlR9xXNTIPKWTZMbFTHF5LHEBlskm3QMSrHYATG2EEGT MIZOYFJT5DIqmWGoQDN1STGZgEINMIT9MsK4SJY9yFI35VQWRdwvd9VHHeQBCMILHiB06ZILVPOPLyKE DopqcxQPPbXhrdtAQ5IOQyIKMby51klDu3QGUkoryr v1ZlZOIdGYWuZNLzWWYvbJyyVYEbYVemjFbsXCH3UJibkKAvtYKccAL5vC6rYQWkREZjcKtdf2SfI8yh HM4suVJsmKDxKTKmd65bXCKqSCQuSAXnWXXzzmQeikJhqXpvdRCmkSHoWFBeeGCutpVmh9P0CpZuHZJd cGFyfQ== Comment (test code = 934115957) c1nxsOYtEIUyuDSkBeYoTIYeIOGdu1dcRGZhxYQrNiZbAvNzWaNmYustkDQtPETuTlTdx9hkd653gOEd q3olLSPwCqP6zURlQCLknODvN083PSIqUKmpj4csz5FbBEIqqWTvx7C1JVFCuefgsFh3yKoeX72ef0W8 YlaxD8alVFUwDQEjP4QbLU4eIUTfToz5JLX1HTE3EB OfPRXsX5WiHI6bGMDiaUNiBKm4f5udoDkeVYPnEWU4w3qoMHfcggSpGQ9obx9shFh1u2kznmFqZGFjRG HaxSWTNBZjM7PtiHzyOw3hhPr7uVrxAdrbBUW3Kdo6EM3yro98mle2nQkkZOGwuwjkYgU2NLbdAOVqzl gySFs1AYqeGBHwlHWbPiegMXYpwnHyYzbjUZFzaCLf CszoXPIfMtZgHjhiLODaEFS7XtNcXAGjy0ZncawoAN3mX7Xch8K0xW3mqWZkZRHetYVhPfMeUCLcwz5f sXOeVLmcm5EwCTU9ajM6sNPbxRWmTBFnWE60Vyqsy5XrTyyoSKN0WVVtrtWbn6Ell6utDbMkagXgO1hn G7ElPJLjVNYqYEFvDpDfsbYky7Zlt1CayNNyzMc7f9 irSBMdQSAxoUeby2byMPV5KBTzD4O3xPAcm7sjFTugLOOddBM4qpZvAvuvTLYvroX7rqPxLyyzEXIntT Q2wfHhJgtsJJTtLtO3fpDyOynqQTRhOFP2XhCcGZIlq6WfqrecZRPcj3JqV7ZhtSupS91ixHqjI70eNB UzxVeekI2wjXnqlK9zIiLdBsVfGGejyIyhaFVmcggd RVhkxxYgPSvhzdecMICrOHptE4drTiQvZTCitFhgGAhrh0YzYKTxNEBfOfZrYk6qWWbbJARcdBSeAWFo rV3aCJSza2PoKFY0KVBhwkMzw7LmnHg8BAJqg1YeL1EoA4oro36vWnQNwPesv8SsALWddGWuU1otqxXo lwFmajLkMPJsjxQwJUC8GXqhrlWzb1RzWGCtWGSiOP 5qGBUXUuQeNYDbZKAdusZocrgpUE1aVYLkc9MjmCNri3wzmCVkYHDjb2D7VIQnrP3yFI1zWNXvDL2cqC 6oWDAqbipqPFCrU0GmZCK6YIDrd0zxz29xYCNaFBKRLIPPOWEjjgXupbVxB9JwZF9jZMUqRNhpk3Cuoz SdWzTkj4U6gEUmPXNrk2FeCTDxuGfvN4EkN2prr54gKPtgxtTvH6RzATXoxXUxmo1nNAOemm5= Gross Description (test code = 752398882) [file] AzdWfceJcjWWpvLbWzTNWhTBwrK8dhRyJoL2WmSGJnAwVzoYAiZ1ycoULdgF== Microscopic Description (test code = 214377010) c4vklOHoAOWlhQJrPfMmNLYhQXMiq9rlQCXmsKZyOvUpZmFfLbZiDggxcGZjAZVaLmDte0ojv065cLQc f0ouZNRqUiK3jBFeDBMxtSOjD872EINoOVcnb3wow5OjTPNvbDNhm8N7OUSZxhfosHh0eMazL61af8B6 RknbP5tvSBQtQGxpZVFhABklkNAxKWU5KLAsTMO6AC xyqnVqggO7DQwctBIkBfI0AOu3e1cewDttGRYnERZ1s0hvDQxkzcFeHM8cpr0awJv3a3yhlgVwGRXpOF QnaHMKDISfS6IhkUozJz8fdSp6hKpeFjrfZXJ5Cvh2UH2nir14vqb5zDxhCSVjouceKbT3KAsgGBCxwa ovUNt0SOhkJETazMHhEoelJDZgfdZjNmydYAJneOVp PzyqXNGdDkKdQivuPHKfAKO8XrNaAYYve1UevyrtCX9lK3Tgf2G6fU5nbQAoRPTipNRuCaYeROHxnc7n kMTkLQzqd3QuFFS6npF8cXOkdAHlULAmEM21Eruoy9VjKfujHGF4RNSaeqOlb1Jdr9uxDhSduwDyU6kv P6IiCHRoFEXlNOMqReOetxFoh6Hbm1VfpYDdhKt2h5 loZOXhXPBtiMdyl1shYAS3KFRyL1J8qCGiw8ykBPtpXDHbfGZ8daBhJlpoQLStghX2ojNnPxjlJGDeyQ S5bcXgAoeyRLCzMuM4cjIlCsrhHFXlTGU4MlWxOPJys5EmvuioNZWri2YwC9XfqInfJ45ilNdzV14aPI MldVhmvL7ywXgsvK7rQpAwFnPcKZoxoOovlOQftixc JObyieNtQBZrZUbsLLKvKGNxGvCwLVOplTTbl5Xgl2IvFcChcQCphL1qwGwpksZeMSGgDvHrzdVuOOEa r0JpNQFjAI1aJBWvUMNyhI4osX8rwdHidwVjyW3ji2Mhr4GtnDPsQLacZPKvKCFmdBNzjm5ybNTaBOXr uwOtRPByKWNgl8TtwGd5SEKwwmLgjkHtZUEtqxQqE9 1clFKdyTDtGd3vIBWrsAIitVU6w2FgVX2kU1RxCLNyRVJrjD38rv1bzFE1y0ViRD3nI8FvWUX1SXfvoy kpaHEdhTDaRm2khYHeDEJfiwU2oXpgEIXcs7XiLMrfbdYxAvLihwZrDJCmCIuuGPSjsnUrIFKyfOEvnk WyaTbqvdstp0Gmvl45LSXcNBtzavIfQvCpnoInm3Tr JDR4yfMoUWQtcSJnu9AvyHJ4ID4aIKyqPJXhkABpxA== IHC Disclaimer (test code = 016652911) [file] wsolNYqibkQjEItjhfeuPOPvOYaxD1mcGmRsQUIujXytKEavu5ErUHJwKXNuPpYlgVBguC4= [facility] LEAD [id number] 10:58:5712 LEAD EKG FOR [facility] Test Date: 5472-15-46Rta Name: KEN GUTHRIE Department: 6213Patient ID: [id number] Room: Gender: Molder Setter: LRDOB: 1965 Requested By: CHELSEA SENIOR AOrder Number: [id number] Reading MD: Kalin Gutierrez MeasurementsIntervals [place] Rate: 82 P: 19PR: 155 QRS: 79QRSD: 104 T: 65QT: 381 QTc: 447 Interpretive StatementsSINUS RHYTHMINCOMPLETE RIGHT BUNDLE BRANCH BLOCKPOOR R WAVE PROGRESSIONABNORMAL ECGElectronically Signed On 05-26-2019 10:58:53 DELIVERY REP by Sevence POCT BMP POC docked [id number] 10:10:00* Test Item Value Reference Range Interpretation Comments Sodium POC (test code = 93070150) 139 mmol/L 136-145 Potassium POC (test code = 82412282) 4.5 mmol/L 3.5-5.1 Chloride POC (test code = 44418526) 102 mmol/L 98-107 TCO2 POC (test code = 24468690) 26 mmol/L 21-32 Urea Nitrogen POC (test code = 98881507) 11 mg/dL 7-18 Creatinine POC (test code = 89399034) 0.7 mg/dL 0.6-1.3 Glucose POC (test code = 88803183) 102 mg/dL 74-106 Ionized Calcium POC (test code = 02086865) 1.17 mmol/L 1.15-1.29 GFR, Estimated (test code = 28828617) >90 >=90 mL/min/1.73 m2 Hemoglobin POC (test code = 66427150) 14.6 g/dL 12-16 Hematocrit POC (test code = 82163543) 43.0 % 37-47 Lab Interpretation (test code = 17280-3) [facility] [id number] 13:49:00* Test Item Value Reference Range Interpretation Comments Opiate, Ur (test code = 87994-5) Positive Negative A Calibrated Standard: Morphine Positive if urine level > or = 300 ng/dL Amphetamine (test code = 76720-1) Negative Negative Calibrated Standard: D- Methamphetamine Positive if urine level > or = 1000 ng/mL Barbiturate (test code = 86298-3) Negative Negative Calibrated Standard: Secobarbital Positive if urine level is > or = 200 ng/mL Benzodiazepine (test code = 64184-6) Negative Negative Calibrated Standard: Lormethazepam Positive if urine level is > or = 200 ng/mL Cocaine (test code = 48319-6) Negative Negative Calibrated Standard: Benzoylecgonine Positive if urine level > or = 300 ng/dL PCP (test code = 27012-2) Negative Negative C alibrated Standard: Phencyclidine Positive if urine level > or = 25 ng/dL Cannabinoid (test code = 55007-1) Positive Negative A Calibrated Standard: 11 nor-delta(9)-THC carboxylic acid Positive if urine level > or = 50 ng/mL Lab Interpretation (test code = 64750-1) [facility]normal [facility] [id number] 09:47:55IMPRESSION: 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 This [facility] radiology report is a preliminary resident dictation untilfinalized by an attending. Changes to this preliminary report may occurin an additional preliminary or finalized version. Dictated By: Ramesh Acevedo MD, 04/26/2019 9:19 AM I have reviewed the study and agree with the findings in this report. Signed By: Royal Zhang MD, 04/26/2019 9:47 AM Interface, Rad/Mammog In - 04/26/2019 9:52 AM CSTEXAM: CT BRAIN WITH CONTRASTDATE: 04/26/2019 8:22 AMINDICATION: Head/neck cancer, staging. Skin cancer COMPARISON: CT maxillofacial from 04/16/2019TECHNIQUE: Axial CT images of the brain are ac quired with contrast.Sagittal and coronal reformats.IV contrast: 97 mL Omnipaque 300DLP: 1194 mGy-cm FINDINGS: Exophytic and ulcerative right frontal scalp soft tissue mass measuringup to 1.3 cm in thickness, and 5.4 cm CC x 4.7 cm in lengt h,infiltrative of the deep scalp soft tissues extending near the corticalmargin but no discrete erosion of the outer cortex.No concerning additional enhancing l esions in the scalp or concerningfocal osseous lesion. No abnormal intracranial enhancement. Nohydrocephalus or mass effect. Orbits are unremarkable. Imaged par anasalsinuses and mastoid air cells are clear.Again demonstrated is a 6 mm right lymph node.IMPRESSIONIMPRESSION: Ulcerated exophytic malignancy of the right f rontal scalp, which isinfiltrative of the underlying scalp soft tissues extendin g near thecortical margin with no discrete cortical erosion.This [facility] radiology report is a preliminary resident dictation untilfinalized by an attending. [place] ges to this preliminary report may occurin an additional preliminary or finalize d version.Dictated By: Ramesh Acevedo MD, 04/26/2019 9:19 AMI have reviewed the kaushik dy and agree with the findings in this report.Signed By: Royal Zhang MD, 9:47 [facility] MAXILLOFACIAL W [id number] 11:59:57 IMPRESSION: 1. Partially visualized right frontal scalp soft tissue lesioncorr esponds with biopsied lesion positive for basal cell carcinoma. Nobony erosion a t the immediately subjacent calvarium2. Mildly prominent right level 2A and par otid lymph nodes measuring upto 7 mm short axis, are concerning for abran diseas e. This [facility] radiology report is a preliminary resident dictation untilfinalized by an attending. Changes to this preliminary report may occurin an additional preliminary or finalized version. Dictated By: Ramesh Acevedo MD, 04/16/2019 11:19 AM I have reviewed the study and agree with the findings in this report. Signed By: Reza Jules MD, 04/16/2019 11:59 AM Interface, Rad/Mammog In - 04/16/20 19 2:16 PM CSTEXAM: CT NECK WITH CONTRASTEXAM: CT FACE WITH CONTRASTDATE: 04/16 9:04 AMINDICATION: Neck mass, hx of malignancy. Skin cancer ([id number]), Skin lesion of face (accession [id number])COMPARISON: None.TECHNIQUE: Vol umetric CT of the neck and face is obtained afterintravenous contrast. Axial, co claudette and sagittal images are provided.IV contrast: 97 mL Omnipaque 300.DLP: 675 mGy-cm FINDINGS:Odontogenic: Numerous missing teeth and dental caries.Facial sp aces: No edema, organized collection or abscess. The nasopharynx, oropharynx and oral cavity are normal. The larynx,hypopharynx and thyroid gland are markable.Enhancing nodes within the right parotid gland measuring up to 7 mm (series 201 image 70, 84). The salivary glands including the parotid andsubmandi bular glands are otherwise normal.The paranasal sinuses and mastoid air cells ar e clear. Imaged portionsof the brain and orbits are unremarkable.Mildly prominen t right level 2A lymph nodes measuring up to 7 mm shortaxis (series 201 image 60 , 61, 70). The visualized osseous structures shown no aggressive changes.Partial ly visualized is an enhancing, exophytic, ulcerating andfungating irregularly sh aped soft tissue mass along the right frontalscalp, measuring up to 4.8 cm. Ther e is no bony erosion at theimmediately subjacent calvarium.The lung apices are c lear.IMPRESSIONIMPRESSION: 1. Partially visualized right frontal scalp soft ti ssue lesioncorresponds with biopsied lesion positive for basal cell carcinoma. N obony erosion at the immediately subjacent calvarium2. Mildly prominent right l evel 2A and parotid lymph nodes measuring upto 7 mm short axis, are concerning f or abran disease.This [facility] radiology report is a preliminary resident dictation untilfinalized by an attending. Changes to this preliminary report may occurin an additional preliminary or finalized version.Dictated By: Ramesh Acevedo MD, 11:19 AMI have reviewed the study and agree with the findings in this re port.Signed By: Reza Jules MD, 04/16/2019 11:59 [facility] SOFT TISSUE NECK W [id number] 11:59:57IMPRESSION: 1. Partially visualized right frontal scalp soft tissue lesioncorresponds with biopsied lesion positive for basal cell carcinoma. Nobony erosion at the immediately subjacent calvarium2. Mildly prominent right level 2A and parotid lymph nodes measuring upto 7 mm short axis, are concerning for abran disease. This [facility] radiology report is a preliminary resident dictation untilfinalized by an attending. Changes to this preliminary report may occurin an additional preliminary or finalized version. Dictated By: Ramesh Acevedo MD, 04/16/2019 11:19 AM I have reviewed the study and agree with the findings in this report. Signed By: Reza Jules MD, 04/16/2019 11:59 AM Interface, Rad/Mammog In - 04/16/2019 2:16 PM CSTEXAM: CT NECK WITH CONTRASTEXAM: CT FACE WITH CONTRASTDATE: 04/16/2019 9:04 AMINDICATION: Neck mass, hx of malignancy. Skin cancer ([id number]), Skin lesion of face (accession [id number])COMPARISON: None.TECHNIQUE: Volumetric CT of the neck and face is obtained afterintravenous contrast. Axial, coronal and sagittal images are provided.IV contrast: 97 mL Omnipaque 300.DLP: 675 mGy- cm FINDINGS:Odontogenic: Numerous missing teeth and dental caries.Facial spaces: No edema, organized collection or abscess. The nasopharynx, oropharynx and oral cavity are normal. The larynx,hypopharynx and thyroid gland are markable.Enhancing nodes within the right parotid gland measuring up to 7 mm (series 201 image 70, 84). The salivary glands including the parotid andsubmandi bular glands are otherwise normal.The paranasal sinuses and mastoid air cells ar e clear. Imaged portionsof the brain and orbits are unremarkable.Mildly prominen t right level 2A lymph nodes measuring up to 7 mm shortaxis (series 201 image 60 , 61, 70). The visualized osseous structures shown no aggressive changes.Partial ly visualized is an enhancing, exophytic, ulcerating andfungating irregularly sh aped soft tissue mass along the right frontalscalp, measuring up to 4.8 cm. Ther e is no bony erosion at theimmediately subjacent calvarium.The lung apices are c lear.IMPRESSIONIMPRESSION: 1. Partially visualized right frontal scalp soft ti ssue lesioncorresponds with biopsied lesion positive for basal cell carcinoma. N obony erosion at the immediately subjacent calvarium2. Mildly prominent right l evel 2A and parotid lymph nodes measuring upto 7 mm short axis, are concerning f or abran disease.This [facility] radiology report is a preliminary resident dictation untilfinalized by an attending. Changes to this preliminary report may occurin an additional preliminary or finalized version.Dictated By: Ramesh Acevedo MD, 11:19 AMI have reviewed the study and agree with the findings in this re port.Signed By: Reza Jules MD, 04/16/2019 11:59 [facility] BUN/[id number] 15:31:00* Test Item Value Reference Range Interpretation Comments Urea Nitrogen (test code = 56858764) 21.0 mg/dL 7-25 Creatinine (test code = 88203132) 0.7 mg/dL 0.6-1.2 GFR, Estimated (test code = 62581530) 87 >=90 mL/min/1.73 m2 L Lab Interpretation (test code = 39610-5) [facility] [id number] 14:16:00* Test Item Value Reference Range Interpretation Comments Occult Blood (test code = 98393-1) Negative Negative Lab Interpretation (test code = 89238-7) Normal [facility] CenterHemoglobin [id number] 10:22:00* Test Item Value Reference Range Interpretation Comments Hemoglobin A1c (test code = 4548-4) 5.6 % 4.3-6.1 Estimated Average Glucose (test code = 30487493) 114 mg/dL 70-11 0 H Lab Interpretation (test code = 70283-9) [facility]normal [facility]Hepatitis [id number] 17:15:00* Test Item Value Reference Range Interpretation Comments Hepatitis C Virus (HCV) Antibody (test code = 09590-2) Negative Negative Hep B Surface Ag (test code = 5196-1) Negative Negative Hep A Vir Ab IgM (test code = 04227-8) Negative Negative Hep B Core Ab IgM (test code = 24854-2) Negative Negative Lab Interpretation (test code = 47065-1) Normal [facility] CenterTSH [Thyroid Stimulating Hormone]2019-03-26 16:40:00* Test Item Value Reference Range Interpretation Comments TSH (test code = 76688308) 1.99 0.45- 5.33 uIU/mL If , please see the following reference ranges (not verified by lab): 1st Trimester: 0.05 -3.70 uIU/mL2nd Trimester: 0.31 -4.35 uIU/mL3rd Trimester: 0.41 - 5.18 uIU/mL Lab Interpretation (test code = 02313-2) [facility] CenterALT/[id number] 16:37:00* Test Item Value Reference Range Interpretation Comments ALT (test code = 90282658) 14 U/L 7-52 AST (test code = 62028175) 17 U/L 13-39 Lab Interpretation (test code = 91258-2) [facility] CenterLipid Znzxtze8512-02-00 16:37:00* Test Item Value Reference Range Interpretation Comments Cholesterol (test code = 2093-3) 198.0 mg/dL <=200.0 Triglyceride (test code = 38232499) 119 mg/dL <150 HDL (test code = 2085-9) 54.0 mg/dL See Reference Range Narrative . LDL (test code = 02818-6) 120 mg/dL <100 H Op timal: < 100.0 mg/dLNear Optimal: 120-129 mg/dLBorderline: 130-159 mg/dLHigh: 160-189 mg/dLVery High: >=190 mg/dL Patient Fasting? (test code = 65820567) Yes Lab Interpretation (test code = 75889-8) [facility]normal [facility] CenterHIV-1/HIV-2 Routine [id number] 16:24:00* Test Item Value Reference Range Interpretation Comments HIV Ag/Ab Combo (test code = 82672-6) Negative Negative Lab Interpretation (test code = 48208-3) Normal [facility] CenterXRAY SPINE LUMBOSACRAL [id number] 11:36:16IMPRESSION: 1. Multilevel degenerative disc disease, severe at L5-S1.2. Moderate lumbar facet arthropathy.3. Grade 1 anterolisthesis of L2 on L3 secondary to facet arthropathy. This [facility] radiology report is a preliminary resident dictation untilfinalized by an attending. Changes to this preliminary report may occurin an additional preliminary or finalized version. I have reviewed the study and agree with the findings in this report. Signed By: Marco A Noble MD, 03/26/2019 1 1:36 AM Interface, Rad/Mammog In - 03/26/2019 11:41 AM CDTEXAM: XR LUMBAR SPINE 3 VIEWSDATE: 03/26/2019 11:04 AM INDICATION: chronic low back pain since 2005. C hronic midline low backpain without sciatica COMPARISON: NoneTECHNIQUE: AP, con ed lateral and lateral radiographs of the lumbarspineFINDINGS: 5 lumbar type, no n-rib bearing vertebral bodies are present.Vertebral body heights are overall pr eserved. Grade 1 anterolisthesis ofL2 on L3 is seen, secondary to facet arthropa thy. Disc space narrowingis mild at L2-L3, moderate at L3-L4 and L4-L5, and telma re at L5-S1 withsmall anterior osteophyte formation. Moderate facet joint arthro shyla ispresent throughout the lumbar spine.Soft tissues are unremarkable.IMPRES SIONIMPRESSION: 1. Multilevel degenerative disc disease, severe at L5-S1.2. Mo derate lumbar facet arthropathy.3. Grade 1 anterolisthesis of L2 on L3 secondar y to facet arthropathy.This [facility] radiology report is a preliminary resident dict ation untilfinalized by an attending. Changes to this preliminary report may oc curin an additional preliminary or finalized version.I have reviewed the study a nd agree with the findings in this report.Signed By: Marco A Noble MD, 03/26/2019 11:36 [facility]/Gqfr0390-74-11 10:45:00* Test Item Value Reference Range Interpretation Comments WBC (test code = 6690-2) 7.6 K/uL 4.5-11 RBC (test code = 789-8) 4.66 4.20- 5.40 M/uL Hemoglobin (test code = 718-7) 14.6 g/dL 12-16 Hematocrit (test code = 4544-3) 43.6 % 37-47 MCV (test code = 787-2) 93.6 fL 82-92 H MCH (test code = 785-6) 31.3 pg 27-32 MCHC (test code = 786-4) 33.5 g/dL 32-36 RDW (test code = 05431-9) 44.2 fL 36.4-46.3 Platelet (test code = 777-3) 277 K/uL 150-400 Mean Platelet Volume (test code = 39767-8) 9.0 fL 9.4-12.4 L Neutrophil (test code = 770-8) 48.4 % 34-70 Lymphs (test code = 736-9) 41.9 % 20-50 Monocytes (test code = 5905-5) 8.6 % 5-12 Eos (test code = 713-8) 0.4 % 0.7-5 L Basos (test code = 706-2) 0.7 % 0.1-1.2 Neutrophils (Absolute) (test code = 97922818) 3.66 K/uL 1.56-6.1 3 Lymphs (Absolute) (test code = 12677252) 3.16 K/uL 1.18-3.74 Monocytes(Absolute) (test code = 60569345) 0.65 K/uL 0.24-0.36 H Eos (Absolute) (test code = 66700354) 0.03 K/uL 0.04-0.36 L Baso (Absolute) (test code = 03047595) 0.05 K/uL 0.01-0.08 Lab Interpretation (test code = 69971-3) [facility]normal [facility] [id number] 02:23:00Yellow *NA*(01/06/19 9:23 PM) [facility] [id number] 02:23:00Slight Cloudy (01/06/19 9:23 PM)[facility] IMTIQ5331-23-26 02:23:00* Test Item Value Reference Range Interpretation Comments UA Spec Grav (test code = UA Spec Grav) 1.010 1 [facility] [id number] 02:23:00* Test Item Value Reference Range Interpretation Comments UA pH (test code = UA pH) 7.5 1 5.0-8.0 [facility] [id number] 02:23:00Negative (01/06/19 9:23 PM) [facility] KNKQW5593-70-24 02:23:00Negative (01/06/19 9:23 PM) [facility] [id number] 02:23:00Negative *NA*(01/06/19 9:23 PM) [facility] IQJUI5265-43-15 02:23:00Negative *NA*(01/06/19 9:23 PM) [facility] UPSGA1246-58-94 02:23:00Negative (01/06/19 9:23 PM) [facility] MIGKD8448-00-20 02:23:000.2[facility] CEEEY0122-84-09 02:23:00Negative (01/06/19 9:23 PM)[facility] GNFLY1621-69-97 02:23:00Large *ABN*(01/06/19 9:23 PM)[facility] ZCPLLWG0996-69-32 02:19:96547Dizrntpp HermannCARDIAC EIRADEC0336-64-66 02:19:00< 0.02[facility] BRUKCQW8915-85-30 02:19:0068[facility] FWAZQPN6715-69-40 02:19:81308Tuiascyh HermannCHEM LQWZX8402-56-44 02:19:0095 [facility] VCDZE3449-39-35 02:19:009[facility]ann[facility] PANEL 2019-01-07 02:19:000.79[facility]annCHE[facility] PNJAK7346-27-00 02:19:28794Tdonvxwp HermannCHEM CRSVC3051-74-92 02:19:003.2[facility]annCHEM KKYDT7041-81-45 02:19:42233Cpqdvlvq HermannCHEM SVFBJ6153-01-24 02:19:0031[facility]annCHEM PGFNK8501-02-00 02:19:008.7[facility]annCHE[facility] KNHCA2509-67-86 02:19:007.1 [facility]annCHE[facility] GGEGK5346-19-06 02:19:003.7[facility]annCHEM PANEL 2019-01-07 02:19:0029[facility]annCHEM NHCUF0845-07-06 02:19:0027[facility]annCHE[facility] XDLDC7496-54-50 02:19:0084[facility]annCHE[facility] BBBIT0176-32-69 02:19:000.5[facility]annCHE[facility] QEOTB5880-30-03 02:19:0085[facility]annCHE[facility] ATTOB4884-17-46 02:19:009.2[facility]CHE[facility] TRHNC2416-86-46 02:19:00* Test Item Value Reference Range Interpretation Comments B/C Ratio (test code = B/C Ratio) 11 1 6-25 [facility] [id number] 02:19:003.4[facility]annCHE[facility] PANEL 2019-01-07 02:19:00* Test Item Value Reference Range Interpretation Comments A/G Ratio (test code = A/G Ratio) 1.1 1 0.7-1.6 [facility] IcdsspbAWZOTNROYM9096-76-74 02:19:0057.6[facility]annHEMATOLOGY 2019-01-07 02:19:0033.8[facility] SaffqkgEMGULKRIKN6157-99-07 02:19:007.0[facility] VswnazzKJAOEEOFWN1059-45-75 02:19:000.3[facility] YskcldwVDGQYDCSPO3701-24-53 02:19:001.3[facility] YukkmmjUUNUMAFBLR5298-36-11 02:19:006.0[facility] Sim IUXVDPDFIJ1866-59-96 02:19:003.5[facility] GwhcxblPUUVNLYMCZ7666-06-58 02:19:000.7 [facility] JxtivppKVKVTQUUWJ8766-56-03 02:19:000.1[facility]annHEMATOLOGY 2019-01-07 02:19:0010.4[facility] GhqtpvzOJWMIZMOWL3775-27-33 02:19:004.34[facility] JytbpliSKQSLRKHLE7699-85-52 02:19:0014.1[facility] MpnypbmURCXSHCQZJ2349-64-58 02:19:0040.5[facility] PispobaXCCETPCJNO8336-94-46 02:19:0093.5[facility] NXBXDRGVAE3196-63-74 02:19:00* Test Item Value Reference Range Interpretation Comments MCH (test code = MCH) 32.4 pg 27.0-31.0 [facility] GmqomokYZKDBTBIID3482-61-18 02:19:0034.7[facility]annHEMATOLOGY 2019-01-07 02:19:0013.2[facility] PbqaavtNRCDMZLMNR9746-87-89 02:19:19724Qatwsobx RezqojfVVERYWMPCU0981-32-76 02:19:008.4[facility] Sim
== END 2020-02-18 19:04 | disposition home or self-care (01) ==
LOC: ER 14:44
DX: J40 Bronchitis, not specified as acute or chronic (principal); J90 Pleural effusion, not elsewhere classified; R07.89 Other chest pain; S30.810A Abrasion of lower back and pelvis, initial encounter; F17.210 Nicotine dependence, cigarettes, uncomplicated
CPT/HCPCS: 71045; 99284